=== PATIENT | female | born 2000 | race Caucasian/White ===

== ENCOUNTER 2020-01-08 00:13 | Observation (INO) | payer OTHER ==
[~2020-01-08] VITALS: Ht 157.5 cm; Wt 42.6 kg
[~2020-01-08 00:13] MED LIST: AMOX50SU PO; CODACEE120 PO; RXCODACESY PO; VITAMENS
[2020-01-08] MEDS ORDERED: AMIT25 PO (00:27)
[2020-01-08 01:07] LABS: BASOPHILS ABSOLUTE AUTO 0.04 K/mm3 (0.00-0.23); BASOPHILS PERCENT AUTO 0 % (0-2); EOSINOPHILS ABSOLUTE AUTO 0.11 K/mm3 (0.00-0.68); EOSINOPHILS PERCENT AUTO 1 % (0-6); Hematocrit 43.8 % (33.0-51.0); Hemoglobin 15.1 g/dL (11.5-16.0); IMMATURE GRAN ABSOLUTE AUTO 0.02 K/mm3 (0.00-0.10); IMMATURE GRAN PERCENT AUTO 0 % (0-1); LYMPHOCYTES ABSOLUTE AUTO 3.98 K/mm3 (0.84-5.20); LYMPHOCYTES PERCENT AUTO 33 % (21-46); MONOCYTES ABSOLUTE AUTO 0.78 K/mm3 (0.16-1.47); MONOCYTES PERCENT AUTO 7 % (4-13); Mean Corpuscular HGB 32.2 pg (26.0-34.0); Mean Corpuscular HGB Conc 34.5 g/dL (31.5-36.5); Mean Corpuscular Volume 93 fL (80-100); Mean Platelet Volume 9.7 fL (9.1-12.4); NEUTROPHILS ABSOLUTE AUTO 7.08 K/mm3 (1.96-9.15); NEUTROPHILS PERCENT AUTO 59 % (41-73); Platelet Count 204 K/mm3 (150-400); RDW Coefficient Variation 11.9 % (11.7-14.2); RDW Standard Deviation 40.8 fL (35.1-46.3); Red Blood Cell Count 4.69 M/mm3 (3.80-5.20); White Blood Cell Count 12.01 K/mm3 (4.00-11.30)
[2020-01-08 01:24] LABS: Acetaminophen, Random <2.0 ug/mL (10.0-30.0); Alanine Aminotransfer (ALT/SGP 20 U/L (12-78); Albumin, Blood 4.8 g/dL (3.4-5.0); Albumin/Globulin Ratio 1.3 (0.8-1.8); Alk Phos 84 U/L (45-116); Anion Gap 10 mmol/L (6-16); Aspartate Aminotrans (AST/SGOT 23 U/L (12-37); Bilirubin, Total 0.5 mg/dL (0.1-1.0); Blood Urea Nitrogen 12 mg/dL (8-21); Bun/Creatinine Ratio 17.5 (12.0-20.0); CO2, Blood 25 mmol/L (21-32); Calcium, Blood 9.6 mg/dL (8.5-10.1); Chloride, Blood 104 mmol/L (98-108); Creatinine, Blood 0.69 mg/dL (0.40-1.00); Ethanol (Alcohol), Blood, Med 13 mg/dL; Globulin, Blood 3.6 g/dL (2.2-4.0); Glomerular Filtration Rate >60 (60-); Glucose, Blood 79 mg/dL (70-99); Potassium, Blood 3.3 mmol/L (3.5-5.5); Salicylate <1.7 mg/dL (2.8-20.0); Sodium, Blood 139 mmol/L (136-145); Total Protein, Blood 8.4 g/dL (6.4-8.2)
[2020-01-08 02:38] LABS: Source, Urine Voided
[2020-01-08 02:42] LABS: Bilirubin, Urine Neg (Neg); Blood, Urine Neg (Neg); Glucose Qualitative, Urine Neg (Neg); Ketones, Urine 3+ (Neg); Leukocyte Esterase, Urine 1+ (Neg); Nitrite, Urine Neg (Neg); Protein, Urine Neg (Neg); Urobilinogen, Urine NORM (Normal)
[2020-01-08 02:43] LABS: Appearance, Urine Clear (Clear); Color, Urine Yellow (P-Yellow)
[2020-01-08 02:48] LABS: Bacteria Few /hpf; Red Blood Cells, Urine 0-2 /hpf (0-2); Squamous Epithelial Cells Few /hpf (Few); White Blood Cells, Urine 0-2 /hpf (0-5)
[2020-01-08 02:52] LABS: U Amphetamine Screen Not Detected; U Barbituate Screen Not Detected; U Benzodiazapine Screen Not Detected; U Buprenorphine Screen Not Detected; U Cannabinoids Screen DETECTED; U Cocaine Screen Not Detected; U Methadone Screen Not Detected; U Methamphetamine Screen Not Detected; U Opiates Screen Not Detected; U Oxycodone Screen Not Detected; U Phencyclidine Screen Not Detected; U Propoxyphene Screen Not Detected
--- NOTE | 2020-01-08 05:53 | NUR ---
ASSUMED CARE NOTE: ASSUMED CARE OF PT AT 0502, RECEVIED REPORT FROM CHUY OLIVA. PT ARRIVED TO UNIT VIA STRETCHER. PT AMBULATED SELF TO PATIENT BED, STEADY ON FEET. PT IS ALERT/ORIENTEDX3, ABLE TO RECALL RECENT EVENTS. PT DENIES ANY SI AT THIS TIME. 1:[address] PT STS " I WAS NOT TRYING TO HURT MYSELF, I WAS EXPERIMENTING" PT IS ON RA WITH SPO2 AT 97% PT IN SINUS ARRYTHMIA WITH HR IN THE 70'S. PT DENIES NAUSEA AT THIS TIME. ACTIVE BT IN ALL QUADRANTS. PT IS CALM AND COOPRATIVE AT THIS TIME AND ANSWERS QUESTIONS APPROPRIATLY. WILL CONTINUE TO MONITOR PT UNTIL REPORT IS GIVEN TO ONCOMING SHIFT.
--- NOTE | 2020-01-08 06:19 | NUR ---
SHIFT SUMMARY: SEE PREVIOUS NOTE. CALLED [facility], THEY RECOMMENDED 1 GRAM OF MAG REPLACEMNT, AND TO PREFORM EKG 30-60 MINUTES AFTER INFUSION AND TO CALL THEM WITH RESULTS. AWARE, ORDERS PLACED.
--- NOTE | 2020-01-08 08:19 | NUR ---
PT AWAKENED SPONTANIOUSLY FROM SLEEP. DENIES S.I. AND STATES "I WAS JUST BEING STUPID". PT IS A/O AND DOING SIMPLE MATH BUT DOES SAY SHE FEELS JUST A LITTEL "CLOUDY" LIKE SHE IS JUST WAKING UP. PT IS PLEASANT AND COOP. AND ASKING APPROP QUESTIONS TO WHAT NOW ISSUES AND CURRENTLY ACCEPTIING OF THE PROCESS. MAG IVPB IS COMPLETED AND POST INFUSION EKG TO BE DONE REQUESTED WITH F/U CALL TO [facility]. IVF NS AT 100ML AND PT IS TAKING PO W/O CURRENT DISTRESS.
[2020-01-08 08:39] LABS: Albumin, Blood 4.3 g/dL (3.4-5.0); Anion Gap 10 mmol/L (6-16); Blood Urea Nitrogen 10 mg/dL (8-21); Bun/Creatinine Ratio 15.4 (12.0-20.0); CO2, Blood 22 mmol/L (21-32); Calcium, Blood 8.7 mg/dL (8.5-10.1); Chloride, Blood 108 mmol/L (98-108); Creatinine, Blood 0.65 mg/dL (0.40-1.00); Glomerular Filtration Rate >60 (60-); Glucose, Blood 73 mg/dL (70-99); Phosphorus, Blood 3.3 mg/dL (2.5-4.9); Sodium, Blood 140 mmol/L (136-145)
--- NOTE | 2020-01-08 08:57 | NUR ---
[facility] CALLED WITH EKG, MAG, UA RESULTS. VSS, PT ALERT AND [facility] WILL SIGN OFF AT THIS POINT.
--- NOTE | 2020-01-08 10:07 | NUR ---
PT NAPPED FOR SHORT PERIOD AND THEN BOYFRIEND CAME IN. PT EASILY AROUSED AND IS A/O VISITING. VSS. PT AND VISITOR ARE COMPLIANT WITH PT CARE AND RESTRICTIONS. WILL FOLLOW.
--- NOTE | 2020-01-08 11:14 | NUR ---
1045... DR STARKEY WAS IN TO VISIT AND ASSESS PT STATUS. PT DENIES S.I., HOMICIDAL, OR ANY PERSONAL INTENTIONS FOR PERSONAL HARM. PT WILL HAVE PERSON ACCESS TO GRANDMOTHER, AUNT, OR BOYFRIEND AND CAN CALL AND TALK TO THEM IF ANY CHANGED WERE TO OCCURE. PT DENIES FEELING THOUGH ANY CHANGES TO CURRENT A/O AND POSITIVE STATUS. POISON CONTROL HAS SIGNED OFF ON PT OD, QRS, QTC, VS, AND ELECTROLYTE STATUS, AND THIS WAS SHARED WITH DR STARKEY. PT IS VERY WILLING TO REMAIN FOR A FEW HOURS FOR OBSERVATION AND STATUS HAS BEEN DOWN GRADED TO MED/TELE. 2MD HOLD PAPERS WERE SIGNED PER DR STARKEY WITH ORIGINAL SENT TO ED AND COPY PLACED IN THE CHART. THE PT VERBALIZES WILLLINGNESS TO CALL EMF FOR F/U. PT WAS COACHED AND EDUCATED REGARDING PERSONAL CARE RE REGULAR SLEEP, GOOD DIET, DAILY EXERCISE, AND AVOIDANCE OF STRESSFUL SITUATIONS. PT EXPRESSED WILLINGNESS TO BECOME MORE INVOLVED IN PERSONAL CARE. DR STARKEY D/C TELE PSYCH AFTER VIGEROUSLY QUESTIONING PT IN RE TO HER CURRENT MENTAL OUTLOOK, FEELINGS ( ABOVE) AND WHAT HAD PERSIPITATED THIS OVERDOSE EVENT. AGAIN PT ADMITS TO THIS BEING SELFISH AND STUPID BEHAVIOR W/O ANY PREMEDITATED PLANS FOR SELF HARM JUST WANTED TO "GET HIGH".
--- NOTE | 2020-01-08 12:38 | NUR ---
PT D/C INSTRUCTIONS GIVEN NOTED. D/C IV L HAND INTACT. QTC AND QRS NOTED WNL. PT BELONGINGS RETURNED. PT TO SOUTH ENTRANCE VIA W/C [id number].
--- NOTE | 2020-01-08 12:45 | NUR ---
LATE ENTRY NOTE... PT WAS ASKED RE CALLING FAMILY MEMBERS THAT SHE IS BEING DISCHARGED AND PT DECLINED INDICATING THAT SHE WOULD CALL AND INFORM THEM. BOYFRIEND WAS IN ATTENDANCE.
== END 2020-01-08 12:33 | disposition home or self-care (01) ==
LOC: ER 00:13 → ICUW 00:14
PROVIDERS: Emergency Medicine; ADMIT Family Medicine
DX: T43.012A Poisoning by tricyclic antidepressants, intentional self-harm, initial encounter (principal); F32.9 Major depressive disorder, single episode, unspecified; F41.9 Anxiety disorder, unspecified; F43.10 Post-traumatic stress disorder, unspecified; Z72.89 Other problems related to lifestyle
CPT/HCPCS: 36415; 80053; 80069; 81001; 81025; 83735; 85025; 87086; 93005; 93010; 96360; 96361; 96365; 99285-25; A9270; G0378; G0480; J3475; J7030; P9612

== ENCOUNTER → 2023-09-01 | Outpatient (CLI) | payer OTHER ==
[~2023-09-01] MED LIST changes: +AMIT25 PO
== END | disposition home or self-care (01) ==
LOC: LAB 18:31 → LAB SHORT 18:31
PROVIDERS: Family Medicine
DX: Z01.419 Encounter for gynecological examination (general) (routine) without abnormal findings (principal)
CPT/HCPCS: G0123

== ENCOUNTER 2025-01-10 22:24 | Emergency (ER) | payer OTHER ==
[~2025-01-10] VITALS: Ht 157.5 cm; Wt 45.4 kg
[2025-01-10 23:20] LABS: BASOPHILS ABSOLUTE AUTO 0.03 K/mm3 (0.00-0.23); BASOPHILS PERCENT AUTO 0 % (0-2); EOSINOPHILS ABSOLUTE AUTO 0.23 K/mm3 (0.00-0.68); EOSINOPHILS PERCENT AUTO 2 % (0-6); Hematocrit 38.8 % (33.0-51.0); Hemoglobin 13.2 g/dL (11.5-16.0); IMMATURE GRAN ABSOLUTE AUTO 0.02 K/mm3 (0.00-0.10); IMMATURE GRAN PERCENT AUTO 0 % (0-1); LYMPHOCYTES ABSOLUTE AUTO 3.04 K/mm3 (0.84-5.20); LYMPHOCYTES PERCENT AUTO 28 % (21-46); MONOCYTES ABSOLUTE AUTO 0.76 K/mm3 (0.16-1.47); MONOCYTES PERCENT AUTO 7 % (4-13); Mean Corpuscular HGB Conc 34.0 g/dL (31.5-36.5); Mean Corpuscular Volume 94 fL (80-100); NEUTROPHILS ABSOLUTE AUTO 6.64 K/mm3 (1.96-9.15); NEUTROPHILS PERCENT AUTO 62 % (41-73); NRBC ABSOLUTE 0.00 K/mm3 (0.00-0.02); NRBC Auto 0.0 /100 WBC (0.0-0.2); Platelet Count 229 K/mm3 (150-400); RDW Coefficient Variation 12.6 % (11.7-14.2); RDW Standard Deviation 43.4 fL (35.1-46.3)
[2025-01-11] LABS: Source, Urine Clean Catch
[2025-01-11] LABS: Alanine Aminotransfer (ALT/SGP 24.0 U/L (12-78); Albumin, Blood 4.2 g/dL (3.4-5.0); Albumin/Globulin Ratio 1.4 (0.8-1.8); Anion Gap 10.0 mmol/L (3-11); Aspartate Aminotrans (AST/SGOT 19.0 U/L (12-37); Bilirubin, Total 0.4 mg/dL (0.1-1.0); Blood Urea Nitrogen 11.0 mg/dL (8-24); CO2, Blood 25.0 mmol/L (21-32); Calcium, Blood 8.9 mg/dL (8.5-10.1); Chloride, Blood 104.0 mmol/L (98-108); Creatinine, Blood 0.65 mg/dL (0.40-1.00); Globulin, Blood 3.1 g/dL (2.2-4.0); Glucose, Blood 110.0 mg/dL (70-99); Potassium, Blood 3.5 mmol/L (3.5-5.5); Sodium, Blood 135.0 mmol/L (136-145); Total Protein, Blood 7.3 g/dL (6.4-8.2)
[2025-01-11 00:22] LABS: Bilirubin, Urine Neg (Neg); Color, Urine Yellow (P-Yellow); Glucose Qualitative, Urine Neg (Neg); Ketones, Urine Neg (Neg); Leukocyte Esterase, Urine Neg (Neg); Protein, Urine Neg (Neg); Specific Gravity, Urine 1.010 (1.003-1.022); Urobilinogen, Urine NORM (Normal)
[2025-01-11 02:55] VITALS: BP 99/69
== END 2025-01-11 02:55 | disposition home or self-care (01) ==
LOC: ER 22:24
PROVIDERS: Physician Assistant
DX: R14.1 Gas pain (principal); Z59.89 Other problems related to housing and economic circumstances
CPT/HCPCS: 80053; 81003; 81025; 85025; 93005; 93010; 99284-25